=== PATIENT | male | born 1960 | race Caucasian/White ===

== ENCOUNTER → 2024-12-24 16:55 | Outpatient (REF) | payer OTHER, SELFPAY ==
[2024-12-24 18:01] LABS: C-Reactive Protein < 5.00 mg/L (0.0-10.00)
[2024-12-24 19:16] LABS: Folate 8.8 ng/ml (2.76-20); Vitamin B12 300 pg/ml (239-931)
== END ==
LOC: REG 16:55
PROVIDERS: ATTENDING PHYSICIAN Nurse Practitioner; FAMILY PHYSICIAN Internal Medicine
DX: R20.0 Anesthesia of skin (principal); R20.2 Paresthesia of skin
CPT/HCPCS: 36415; 82607; 82746; 84155; 84165; 84207; 84425; 85652; 86038; 86140